=== PATIENT | female | born 1950 | race Caucasian/White ===

== ENCOUNTER → 2018-10-18 | Outpatient (CLI) | payer MEDICARE, OTHER ==
[~2018-10-18] MED LIST: RT-ALBUTEROL SULF 2.5 MG/3 ML PRE-MIX VIAL INH ONE
== END ==
LOC: RT 09:30
PROVIDERS: ATTEND Nurse Practitioner Family
DX: J45.909 Unspecified asthma, uncomplicated (principal); R49.0 Dysphonia
CPT/HCPCS: 94060; 94726; 94729

== ENCOUNTER → 2021-05-17 | Outpatient (CLI) | payer MEDICARE, OTHER | LOC: RT 13:00 | PROVIDERS: ATTEND Nurse Practitioner Family | DX: J45.909 Unspecified asthma, uncomplicated (principal) | CPT/HCPCS: 94060; 94726; 94729 ==

== ENCOUNTER → 2022-05-09 | Outpatient (CLI) | payer MEDICARE, OTHER | LOC: CARD 15:00 | PROVIDERS: ATTEND Pediatrics | DX: I08.3 Combined rheumatic disorders of mitral, aortic and tricuspid valves (principal) | CPT/HCPCS: 93306 ==

== ENCOUNTER → 2022-06-04 | Outpatient (CLI) | payer MEDICARE, OTHER ==
[~2022-06-04] VITALS: Ht 154.9 cm; Wt 54.9 kg
[~2022-06-04] MED LIST changes: +BETA15CR14 TP; +BUDE10.2 IH; +CETI10TA24 PO; +FAMO20TA3 PO; +FLUT12AE4 IH; +MELO7.5T46 PO; +MONT-40 PO; +NFIPRATRNS NS; -RT-ALBUTEROL SULF 2.5 MG/3 ML PRE-MIX VIAL INH ONE
== END | disposition home or self-care (01) ==
LOC: PREOP 06:19
PROVIDERS: ATTEND Surgery
DX: Z01.818 Encounter for other preprocedural examination (principal)

== ENCOUNTER 2022-06-17 10:10 | Day surgery (SDC) | payer MEDICARE, OTHER ==
[~2022-06-17] VITALS: Ht 154.9 cm; Wt 54.9 kg
[2022-06-17] MEDS ORDERED: LACTATED RINGERS 1,000 ML IV STA (10:15)
[2022-06-17 10:25] VITALS: BP 174/76
[2022-06-17] MEDS ORDERED: ONDANSETRON 4 MG/2 ML (SDV) Z0FRAN IV ONE (10:30)
[2022-06-17] MEDS ORDERED: ONDANSETRON 4 MG/2 ML (SDV) Z0FRAN ONE (10:42)
[2022-06-17] MEDS ORDERED: PROPOFOL INJECTION 50 ML IV ONE (12:14)
[2022-06-17] MEDS ORDERED: proPOfol 200 MG/20 ML (DIPRIVAN) VIAL IV ONE (12:43)
--- NOTE | 2022-06-17 12:57 | Progress Note-Post Operative ---
Post-Operative Progess Note Surgeon (s)/Swim Instructor (s) Surgeon BEAN CHRIS DO Swim Instructor: na Pre-Operative Diagnosis family history of colon cancer Post-Operative Diagnosis colon polyps x 2, diverticulosis Procedure & Operative Findings Date of Procedure 06/17/22 Procedure Performed/Findings colonoscopy c hot bx polypectomy x 2 Anesthesia Type per hydrate control tender Estimated Blood Loss Estimated blood loss (mL): none Specimens/Packing Specimens Removed transverse and sigmoid polyp BEAN CHRIS DO Jun 17, 2022 12:57
--- NOTE | 2022-06-17 12:58 | Discharge Inst-Simple/Standard ---
Discharge Inst-Standard Patient Instructions/Follow Up Plan of Care/Instructions/FU: 2 weeks Alysha Activity as Tolerated: Yes Discharge Diet: Regular Diet (high fiber) BEAN CHRIS DO Jun 17, 2022 12:58
--- NOTE | 2022-06-17 13:02 | Anesthesia-General Post-Op ---
MAC Patient Condition Mental Status/LOC: Same as Preop Cardiovascular: Satisfactory Nausea/Vomiting: Absent Respiratory: Satisfactory Pain: Controlled Complications: Absent Post Op Complications Complications None Follow Up Care/Instructions Patient Instructions None needed. Anesthesiology Discharge Order Discharge Order Patient is doing well, no complaints, stable vital signs, no apparent adverse anesthesia problems. No complications reported per nursing. BRUNILDA AKERS CRNA Jun 17, 2022 13:02
[2022-06-17 13:03] VITALS: BP 103/51
[2022-06-17 13:08] VITALS: BP 116/53
[2022-06-17 13:10] VITALS: BP 116/53
[2022-06-17 13:25] VITALS: BP 116/53
--- NOTE | 2022-06-17 21:30 | OPERATIVE REPORT ---
DATE OF SERVICE: 06/17/2022 PREOPERATIVE DIAGNOSIS: Family history of colon cancer. POSTOPERATIVE DIAGNOSIS: Colon polyps x2 and diverticulosis. PROCEDURE: Colonoscopy with hot biopsy polypectomy x2. SURGEON: Bean Encarnacion DO ANESTHESIA: Per SURVEY INSTRUMENT OPERATOR. ESTIMATED BLOOD LOSS: None. COMPLICATIONS: None. SPECIMENS: Transverse and sigmoid colon polyp. INDICATIONS: The patient is a 72-year-old female needing colonoscopy for family history of colon cancer. She understands risks and benefits of procedure and wishes to proceed. Consent was signed in the chart. DESCRIPTION OF PROCEDURE: The patient was taken to the endoscopy suite, placed in left lateral recumbent position. Timeout was performed. Digital rectal exam was performed. No palpable polyps, masses or ulcerations. Scope was inserted in the rectum and advanced all the way to cecum with minimal difficulty. Prep was adequate. Scope was slowly retracted back. No polyps, masses or ulcerations within the cecum, ascending colon. In the transverse colon, a small polyp was present, which hot biopsy polypectomy was performed. Scope was then continuously retracted back. No polyps, masses or ulcerations in remainder of the transverse, descending colon. In the sigmoid colon, small amount of diverticulosis present. Also, small polyp, which hot biopsy polypectomy was performed. Scope was then continuously retracted back into the rectum where it was also retroflexed noting no other pathology. Scope was returned to its normal position, slowly withdrawn until completely removed. The patient tolerated procedure well without any complications. She was taken to recovery room in stable condition. RECOMMENDATIONS: The patient will need repeat colonoscopy on as needed basis. Recommend high fiber diet. The patient will follow up in the office to discuss pathology results in 2 weeks. Job ID: [id number] DocumentID: [id number] Dictated Date: 06/17/2022 13:00:29 Rehab Assistant Date: 06/17/2022 21:29:51 Dictated By: BEAN ENCARNACION DO
== END 2022-06-17 13:40 | disposition home or self-care (01) ==
LOC: ENDO 10:10
PROVIDERS: ATTEND Surgery
DX: Z12.11 Encounter for screening for malignant neoplasm of colon (principal); D12.3 Benign neoplasm of transverse colon; D12.5 Benign neoplasm of sigmoid colon; K57.30 Diverticulosis of large intestine without perforation or abscess without bleeding; Z91.040 Latex allergy status; Z88.2 Allergy status to sulfonamides; Z80.0 Family history of malignant neoplasm of digestive organs
CPT/HCPCS: 88305

== ENCOUNTER 2023-01-22 05:31 | Outpatient (CLI) | payer MEDICARE, OTHER ==
[~2023-01-22] VITALS: Ht 154.9 cm; Wt 55.9 kg
[2023-01-22] MEDS ORDERED: HYDR-700 PO (17:06)
[2023-01-22] MEDS ORDERED: POLY1DRO OP (17:06)
[2023-01-22] MEDS ORDERED: BUDE10.7 IH (17:06)
[2023-01-22] MEDS ORDERED: TERC20CR2 VG (17:06)
[2023-01-22] MEDS ORDERED: CHOL100048 PO (17:06)
[2023-01-22] MEDS ORDERED: OMEG-9 PO (17:06)
[2023-01-22] MEDS ORDERED: SOUR1000 PO (17:06)
== END 2023-01-26 09:30 | disposition home or self-care (01) ==
LOC: PREOP 05:31
PROVIDERS: ATTEND Surgery
DX: Z01.818 Encounter for other preprocedural examination (principal)

== ENCOUNTER 2023-01-29 07:50 | Day surgery (SDC) | payer MEDICARE, OTHER ==
[~2023-01-29] VITALS: Ht 154.9 cm; Wt 55.9 kg
[2023-01-29] VITALS (17 sets, daily range): BP systolic 140–243; BP diastolic 65–147
[~2023-01-29 07:50] MED LIST changes: +BUDE10.7 IH; +CHOL100048 PO; +HYDR-700 PO; +OMEG-9 PO; +POLY1DRO OP; +SOUR1000 PO; +TERC20CR2 VG
[2023-01-29] MEDS ORDERED: BUP/EPI 0.25% 1:200,000 (MARCAINE) 30 ML VIAL ONE (07:57)
[2023-01-29] MEDS ORDERED: BUP/EPI 0.25% 1:200,000 (MARCAINE) 30 ML VIAL INJ ONE (08:02)
[2023-01-29] MEDS ORDERED: ceFAZolin INJECTION 2,000 MG in NS (IVPB) 50 ML IV ONE (08:15)
[2023-01-29] MEDS ORDERED: FAMOTIDINE 20MG/2ML IV (PEPCID) IV ONE (08:15)
[2023-01-29] MEDS ORDERED: ONDANSETRON 4 MG/2 ML (SDV) Z0FRAN IV ONE (08:15)
[2023-01-29] MEDS ORDERED: MIDAZOLAM 2 MG/2 ML (VERSED) VIAL ONE (08:18)
[2023-01-29] MEDS ORDERED: ONDANSETRON 4 MG/2 ML (SDV) Z0FRAN ONE ×2 (08:18→08:21)
[2023-01-29] MEDS ORDERED: LIDOCAINE PF 2% 5 ML (XYLOCAINE) VIAL ONE (08:18)
[2023-01-29] MEDS ORDERED: fentaNYL INJ 100 MCG/2 ML AMP ONE (08:18)
[2023-01-29] MEDS ORDERED: proPOfol 200 MG/20 ML (DIPRIVAN) VIAL IV ONE (08:18)
[2023-01-29] MEDS ORDERED: SEVOFLURANE (ULTANE) 15 ML INHAL SOLN ONE ×2 (08:18→10:25)
[2023-01-29] MEDS ORDERED: FAMOTIDINE 20MG/2ML IV (PEPCID) ONE (08:22)
[2023-01-29] MEDS: LACTATED RINGERS 1,000 ML IV PRN ×2 (08:56→10:05)
[2023-01-29] MEDS ORDERED: ROCURONIUM 50 MG/5 ML (ZEMURON) VIAL IV ONE (09:28)
--- NOTE | 2023-01-29 10:48 | Progress Note-Post Operative ---
Post-Operative Progess Note Surgeon (s)/Cemetery Vault Installer (s) Surgeon BEAN CHRIS DO Cemetery Vault Installer: Dr Cronin Pre-Operative Diagnosis LEFT INGUINAL HERNIA Post-Operative Diagnosis left incarcerated femoral and direct inguinal hernia Procedure & Operative Findings Date of Procedure 01/29/23 Procedure Performed/Findings robotic left incarcerated femoral and direct inguinal hernia and excision cord lipoma Anesthesia Type general Estimated Blood Loss Estimated blood loss (mL): minimal Specimens/Packing Specimens Removed cord lipoma BEAN CHRIS DO Jan 29, 2023 10:48
[2023-01-29] MEDS ORDERED: ACHD5005 PO (10:49)
[2023-01-29] MEDS ORDERED: DOCU-143 PO (10:49)
--- NOTE | 2023-01-29 10:50 | Discharge Inst-Simple/Standard ---
Discharge Inst-Standard Discharge Medications New, Converted or Re-Newed RX: Transmitted to Pharmacy Patient Instructions/Follow Up Plan of Care/Instructions/FU: 2 weeks Alysha Activity as Tolerated: No Discharge Diet: Regular Diet Other Inst to Patient Follow up Appt: Make appointment for 2 week. Instructions: No lifting greater than 10 pounds. No strenuous activity. May shower in 24 hours, no tub bath or soaking. Use incentive spirometer at home as directed. No Smoking Skin/Wound Care: You have special glue over your incision that will fall off on it's own. Symptoms to Report: Appetite Changes, Extremity Discoloration, Numbness/Tingling, Swelling Increased, Bleeding Excessive, Eyesight Changes, Pain Increased, Urine Color Change, Constipation(Persistent), Fever over 101 degree F, Pain/Pressure in chest, Urinating Difficulty, Cough Up/Vomit Blood, Heart Beat Irreg/Pounding, Pain/Pressure in jaw, Vaginal Bleeding Increase, Cramps in feet or legs, Lightheadedness, Pain/Pressure in shoulder, Diarrhea(Persistent), Memory Changes Suddenly, Questions/Concerns, Weight gain consecutive days, Dizziness/Fainting, Nausea/Vomiting, Shortness of Breath, Weight gain over 2 pounds If questions or concerns contact your physician Or seek help at emergency department. BEAN CHRIS DO Jan 29, 2023 10:50
--- NOTE | 2023-01-29 11:02 | Anesthesia-General Post-Op ---
General Patient Condition Mental Status/LOC: Same as Preop Cardiovascular: Satisfactory Nausea/Vomiting: Absent Respiratory: Satisfactory Pain: Controlled Complications: Absent Post Op Complications Complications None Follow Up Care/Instructions Patient Instructions None needed. Anesthesia/Patient Condition Patient Condition Patient is doing well, no complaints, stable vital signs, no apparent adverse anesthesia problems. No complications reported per nursing. CHAPINCITO DOCKERY CRNA Jan 29, 2023 11:02
[2023-01-29] MEDS ORDERED: ONDANSETRON 4 MG/2 ML (SDV) Z0FRAN IVP PRN (11:15)
[2023-01-29] MEDS ORDERED: MEPERIDINE (DEMEROL) INJ 50 MG/ML IVP ONE (11:15)
[2023-01-29] MEDS ORDERED: fentaNYL INJ 100 MCG/2 ML AMP IVP ONE (11:15)
[2023-01-29] MEDS ORDERED: morphine INJ 10 MG/ML 1ML (SYR OR VIAL) IVP ONE (11:15)
[2023-01-29] MEDS ORDERED: morphine INJ 10 MG/ML 1ML (SYR OR VIAL) ONE (11:36)
[2023-01-29] MEDS ORDERED: LABETALOL HCL 20 MG/4 ML VIAL ONE (12:02)
[2023-01-29] MEDS ORDERED: hydrALAZINE (APESOLINE) 20 MG/ML VIAL ONE (12:25)
[2023-01-29] MEDS ORDERED: HYDROcodone/APAP 5 MG/325 MG (LORTAB) TAB PO ONE (13:15)
--- NOTE | 2023-01-31 00:15 | OPERATIVE REPORT ---
DATE OF SERVICE: 01/29/2023 PREOPERATIVE DIAGNOSIS: Left inguinal hernia. POSTOPERATIVE DIAGNOSIS: Left incarcerated femoral hernia, direct inguinal hernia, cord lipoma. PROCEDURE: Robotic left incarcerated femoral and direct inguinal hernia repair with excision of cord lipoma. SURGEON: Bean Encarnacion DO VP CARDIOVASCULAR: Rashid Cronin DO. Roseanne assisted in retraction, dissection, and closure. ANESTHESIA: General. ESTIMATED BLOOD LOSS: Minimal. COMPLICATIONS: None. INDICATIONS: The patient is a 72-year-old female with a left inguinal hernia. She understands risks and benefits of procedure and wishes to proceed. Consent was signed in chart. DESCRIPTION OF PROCEDURE: The patient was taken to the operating suite. She was prepped and draped in sterile fashion. Timeout was performed. Local anesthetic was infiltrated just above the umbilicus. An 11 blade scalpel was used to make a small skin incision. Cautery used to dissect down to the fascia, which was then scored, grasped and elevated. The abdomen was then entered. An 0 Vicryl was placed in a [id number] fashion for closure at the end of the case. A 12 mm trocar was then inserted. Pneumoperitoneum was achieved. Under direct visualization of laparoscope, an 8 mm robotic trocar was placed on the right side of the abdomen and another one on the left side of the abdomen. The patient was placed in approximately 15 degrees Trendelenburg position. The robot was then docked. Appearance of previous right inguinal hernia repair present within the abdomen, left inguinal region [ ] left direct hernia. The peritoneum was then taken down and continued to develop the preperitoneal space with fenestrated bipolar graspers and scissors. This was then taken down to Derrick's ligament and brought laterally, continued the dissection laterally for creation of the pocket. Direct defect was noted and unable to be reduced. The round ligament was divided. There was some cord lipoma through this area, which was also dissected free and there was some incarcerated fat through the femoral defect, which was removed. The peritoneum was continued to be dissected free further and this was all dissected down approximately 2 cm below the plane Derrick's ligament. A Bard 3DMax large left mesh was then inserted. It was attached to Derrick's ligament with 3-0 Vicryl. A lateral superior stitch was also placed with the 3-0 Vicryl to hold the mesh in place. The peritoneum was then closed using 3-0 V-Loc in a running fashion. The robot was then undocked. The specimen was obtained and the abdomen was then desufflated and the trocars were removed. The 0 Vicryl placed at the began of the case was then tied. The skin was then closed using 4-0 Monocryl in a subcuticular fashion. The abdomen was washed and dried and skin Affix was placed over the incisions. The patient tolerated the procedure well without complications, taken to recovery room in stable condition. Job ID: [id number] DocumentID: [id number] Dictated Date: 01/30/2023 21:58:56 Marine Electronics Technician Date: 01/31/2023 00:13:00 Dictated By: BEAN ENCARNACION DO
== END 2023-01-29 14:00 | disposition home or self-care (01) ==
LOC: SDC 07:50
PROVIDERS: ATTEND Surgery
DX: K41.30 Unilateral femoral hernia, with obstruction, without gangrene, not specified as recurrent (principal); K40.90 Unilateral inguinal hernia, without obstruction or gangrene, not specified as recurrent; K21.9 Gastro-esophageal reflux disease without esophagitis; D17.72 Benign lipomatous neoplasm of other genitourinary organ
CPT/HCPCS: 49505; 49659; 87081; C1781